=== PATIENT | male | born 1960 | race Caucasian/White ===

== ENCOUNTER 2022-05-14 17:03 | Emergency (ER) | payer OTHER ==
[~2022-05-14] VITALS: Ht 190.5 cm; Wt 77.0 kg
[2022-05-14] MEDS ORDERED: MORPHINE SULFATE 4 MG/ML CPJ (NOT FOR IM USE) IV STA (18:22)
[2022-05-14] MEDS ORDERED: TETANUS, DIPHTHERIA, PERTUSSIS VAC/PF 0.5ML (>10YR OLD) IM ONE (18:30)
[2022-05-14] MEDS ORDERED: PROPOFOL 200MG/20ML VIAL IV ONE ×2 (18:30→22:45)
[2022-05-14] MEDS ORDERED: LIDOCAINE HCL/EPINEPHRINE 1%-EPI 1:100,000 20 ML VIAL INFIL ONE (18:30)
[2022-05-14] MEDS ORDERED: CEFAZOLIN 1000MG PREMIX 50 ML IV ONE (18:30)
[2022-05-14 19:31] LABS: BASOPHILS % 0.3 % (0.0-2.0); EOSINOPHILS % 0.8 % (0.0-5.0); LYMPHOCYTES % 16.5 % (20.0-50.0); MEAN CORPUSCULAR VOLUME 87.3 fL (80.0-94.0); MEAN PLATELET VOLUME 8.7 fl (7.4-10.4); MONOCYTES % 6.6 % (2.0-8.0); NEUTROPHILS % 75.8 % (40.0-76.0); PLATELET 149 x1000/uL (130-400); RED BLOOD CELL COUNT 5.16 mill/uL (4.7-6.1); RED CELL DISTRIBUTION WIDTH 13.3 % (11.6-14.6)
[2022-05-14 19:41] LABS: CHLORIDE 102 mEq/L (98-107)
[2022-05-14 19:42] LABS: INR 1.1; PARTIAL THROMBOPLASTIN TIME 29.8 sec (23.4-31.0); PROTHROMBIN TIME 11.4 sec (9.6-11.0)
[2022-05-14] MEDS ORDERED: PROPOFOL 200MG/20ML VIAL IV SCH (20:15)
[2022-05-14] MEDS ORDERED: CEFAZOLIN 1000MG PREMIX 50 ML IV SCH (20:15)
[2022-05-14] MEDS ORDERED: MORPHINE SULFATE 4 MG/ML CPJ (NOT FOR IM USE) IV NR (20:30)
[2022-05-14] MEDS ORDERED: LIDOCAINE HCL/EPINEPHRINE 1%-EPI 1:100,000 30 ML VIAL INFIL NR (20:45)
[2022-05-14] MEDS ORDERED: LIDOCAINE HCL/EPINEPHRINE 1%-EPI 1:100,000 20 ML VIAL INFIL NR (20:45)
[2022-05-14] MEDS ORDERED: NAPR500T7 MT (22:35)
[2022-05-14] MEDS ORDERED: CEPH500T MT (22:37)
[2022-05-14] MEDS ORDERED: HYDROCODONE/ACETAMINOPHEN 5/325MG TABLET PO ONE (22:45)
[2022-05-14 23:00] VITALS: BP 118/83
== END 2022-05-15 | disposition home or self-care (01) ==
LOC: ER 17:03
DX: S61.012A Laceration without foreign body of left thumb without damage to nail, initial encounter (principal); W01.0XXA Fall on same level from slipping, tripping and stumbling without subsequent striking against object, initial encounter; Y93.89 Activity, other specified; Y92.89 Other specified places as the place of occurrence of the external cause; Y99.8 Other external cause status; I48.91 Unspecified atrial fibrillation
CPT/HCPCS: 26770; 36415; 70450; 73130; 73140; 73562; 80053; 83690; 85025; 85610; 85730; 86850; 86900; 86901; 90471; 90715; 96365; 96375; 99152; 99285; J0690; J2270; J2704; J3490